=== PATIENT | female | born 1970 | race Caucasian/White ===

== ENCOUNTER 2016-11-17 17:05 | Emergency (ER) | payer OTHER ==
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
[~2016-11-17 17:05] MED LIST: ADVAIR 500-501 EACH INH; ALLERGY RELIEF10 MG PO; BENADRYL25 MG PO; BIOTIN PO; COLACE100 MG PO; COREG12.5 MG PO; CYANOCOBALAMIN PO; DULERA 200 MCG/51 EA INH; EXCEDRIN EXTRA1 TAB PO; FARXIGA PO; FISH OIL CONCE1 EAC1 PO; GREEN TEA1 EACH PO; K-TAB 10MEQ10 MEQ PO; LIDOCAINE 1% MD20 M1 ID; MAGNESIUM PO; PAIN RELIEF650 MG PO; PROVENTIL OR V6.7 GM INH; RELPAX40 MG PO; THERAGRAN-M1 TAB PO; TOPAMAX200 MG PO; TRAMADOL HCL50 MG PO; ZOFRAN2 MG/M1 IV
[2016-11-17 18:31] LABS: BASOPHIL % 0.6 %; EOSINOPHIL % 0.6 %; HEMATOCRIT 37.4 % (33.0-46.0); HEMOGLOBIN 12.5 g/dL (10.0-15.0); IMMATURE GRANULOCYTE % 0.3 %; LYMPHOCYTE # 1.4 K/uL (0.8-4.0); LYMPHOCYTE % 19.3 %; MCH 32.1 pg (27.0-34.0); MCHC 33.4 gm/dL (32.0-36.5); MCV 95.9 fl (83.0-98.0); MONOCYTE # 0.7 K/uL (0.0-1.0); MONOCYTE % 9.2 %; MPV 9.1 fl (9.4-12.4); NEUTROPHIL # (ANC) 5.1 K/uL (1.8-7.8); NRBC % 0 /100WBC (0-0.00); PLATELET COUNT 288 K/uL (150-450); RDW-CV 13.2 % (11.9-14.6); WBC 7.2 K/uL (4.0-11.0)
[2016-11-17 18:39] LABS: INR - (THERAPEUTIC) 1.04 (0.92-1.07); PROTIME 10.9 SECONDS (9.8-11.4); PTT 26 SECONDS (25-32)
[2016-11-17 18:50] LABS: ALBUMIN 3.9 gm/dL (3.5-5.0); ALK PHOS 56 IU/L (33-138); ALT 27 IU/L (12-78); AST 17 IU/L (10-40); BLOOD UREA NITROGEN 26 mg/dL (6-24); CALCIUM 8.7 mg/dL (8.5-10.5); CHLORIDE 108 mMol/L (96-110); CO2 26 mMol/L (22-32); CPK 93 IU/L (21-215); CREATININE 0.9 mg/dL (0.5-1.1); ESTIMATED GFR (MDRD EQUATION) > 60; MAGNESIUM 2.2 mg/dL (1.8-2.6); SODIUM 140 mMol/L (135-145); TOTAL BILIRUBIN 0.7 mg/dL (0.0-1.5); TOTAL PROTEIN 7.5 g/dL (6.0-8.4)
== END 2016-11-17 19:35 | disposition disaster alternative care site (69) ==
LOC: GMED 17:05
PROVIDERS: Emergency Medicine
DX: F41.9 Anxiety disorder, unspecified (principal); F31.9 Bipolar disorder, unspecified; I50.9 Heart failure, unspecified; J45.909 Unspecified asthma, uncomplicated; I44.7 Left bundle-branch block, unspecified; Z79.82 Long term (current) use of aspirin; Z79.899 Other long term (current) drug therapy; Z91.040 Latex allergy status

== ENCOUNTER 2016-12-19 15:52 | Emergency (ER) | payer SELFPAY ==
--- NOTE | ~2016-12-19 | ER ---
PATIENT'S NAME: RACHEAL VAUGHN [facility] AGE: 46 Y [address] ROOM: [place] [address] LOCATION: ED ADMIT DATE: 12/19/2016 ER/Outpatient Report DISCHARGE DATE: 12/19/2016 FAMILY PHYSICIAN: PHYSICIAN, NO ATTENDING PHYSICIAN: Jose Purcell CHIEF COMPLAINT: Dizziness and low blood pressure. HISTORY OF PRESENT ILLNESS: Ms Vaughn notes that she had low blood pressure yesterday but it was better today but she wanted to get things checked out. She states this is associated with significant dizziness. She has no specific time of onset, but it has been going on for a while. She states that she has received multiple medications for blood pressure and is taking at least three antihypertensives. She also has a report of a history of heart failure secondary to rheumatic heart disease as a child. She reports that she follows with Dr. Barrett for that. She notes that she just does not feel good with this, but cannot really explain otherwise. She has near morales positive review of systems. PAST MEDICAL HISTORY: Documented on the record and reviewed by me. SOCIAL HISTORY: Documented on the record and reviewed by me. MEDICATIONS: Documented on the record and reviewed by me. ALLERGIES: DOCUMENTED ON THE RECORD AND REVIEWED BY ME. REVIEW OF SYSTEMS: All systems reviewed and negative except as noted in the HPI. PHYSICAL EXAMINATION: VITAL SIGNS: Blood pressure 116/75, pulse 114, respiratory rate 18, temperature 98.1, SpO2 is 98% on room air. Pain is rated 4/10. GENERAL: Age-appropriate female, upright on exam table. No apparent pain or distress. NEUROLOGIC: Awake and alert. GCS 15. No focal deficits. No asymmetry. No difficulty with rapid alternating movements. No nystagmus. HEENT: Normocephalic, atraumatic. Eyes are PERRL. Oropharynx is clear and moist. PATIENT'S NAME: RACHEAL VAUGHN [facility] AGE: 46 Y [address] ROOM: [place] [address] LOCATION: [facility] ADMIT DATE: 12/19/2016 ER/Outpatient Report DISCHARGE DATE: 12/19/2016 FAMILY PHYSICIAN: PHYSICIAN, NO ATTENDING PHYSICIAN: Jose Purcell NECK: Supple. Trachea is midline. CHEST: Heart is regular rate and rhythm. Borderline tachycardia on exam. LUNGS: Clear to auscultation bilateral. No rhonchi, wheezes, or rales. ABDOMEN: Soft, nontender, and nondistended. No rebound, guarding, or masses. BACK: Normal to inspection palpation. No CVA tenderness or spinal tenderness. EXTREMITIES: Warm and well perfused. Maybe trace edema of the ankles. LABORATORY DATA AND X-RAYS: No imaging was obtained. EKG is notable for what appears to be left bundle which appears stable from prior EKG dated 11/17/2016. No significant changes. CMS: Again electrolyte abnormality of potassium at 3.6, otherwise unremarkable overall. Renal function and LFTs unremarkable. Cardiac biomarkers are not elevated. ProBNP is 89, free T4 is 1.2, TSH is 0.54. Serum cortisol is pending. White count, hemoglobin, and platelets are all within normal limits. IMPRESSION: Dizziness of unclear etiology. EMERGENCY DEPARTMENT COURSE: The patient was seen and evaluated as above. There has been no evidence of hypotension here. The patient is not orthostatic. I personally performed vital signs. The patient remained with blood pressure in the one teens over 80s and had heart rate of 95-100 at sitting and standing and went up to 110 at standing. The patient has no evidence of systemic disease at this time. Based on the episodic changes in blood pressure, I did consider adrenal insufficiency; however, her presentation is not completely fit with that. Random serum cortisol is pending. Dr. Klein will follow it up. Hand off given at 1800 hours. Please see his dictation for complete details. MD LOUIS HENRY/татьянаl /[id number] d: 12/20/161611 t: 01/02/17 0958, OUTPATIENT REPORT
--- NOTE | ~2016-12-19 | ER ---
PATIENT'S NAME: RACHEAL DONAHUE [facility] AGE: 46 Y [address] ROOM: [place] [address] LOCATION: [facility] ADMIT DATE: 12/19/2016 ER/Outpatient Report DISCHARGE DATE: 12/19/2016 FAMILY PHYSICIAN: Kalen Barrett MD ATTENDING PHYSICIAN: Jose Purcell ADDENDUM: This is an addendum to Dr. Purcell's dictation. Please see his dictation for chief complaint, history of present illness, past medical history, past surgical history, social history, allergies, medications, review of systems, and physical exam. I was asked to follow up on laboratory analysis. I did see the patient and discussed the history with the patient. She reports that these symptoms have been going on for about a month. She reports some low blood pressure at home. There have been no reports of low blood pressure while here in the Emergency Department. She does complain of some nausea for approximately two days. She reports some dizziness as well. Her laboratory analysis and the EKG are reviewed by myself. Cortisol was 9.7. CMP was unremarkable. LFTs are normal. CK-MB is normal. Troponin is normal. Free T4 is normal. TSH is normal. ProBNP is normal. EKG shows sinus tachycardia with a rate of 100, normal axis, and normal interval. No ST elevation or ST depression. Left bundle-branch block. No significant change from 11/17/2016. CBC is normal. I did discuss all these results with the patient. I have discussed following up with the primary care doctor in the next two days for re-evaluation. The patient is on multiple different blood pressure medications including lisinopril and metoprolol. She just recently started the Ativan as well. I have discussed that she may need decreasing doses of this blood pressure medication. I have written a prescription for meclizine for home for her vertiginous symptoms. I have discussed return to care instructions including worsening symptoms or any other concerns, to return to the Emergency Department as soon as possible. The patient is agreeable without further questions. DISPOSITION: The patient was discharged home in good condition. DO KARTHIK BURTON/harry WILKINSON: 12/19/2016 19:22:11 PATIENT'S NAME: RACHEAL DNOAHUE [facility] AGE: 46 Y [address] ROOM: [place], [place] [address] LOCATION: [facility] ADMIT DATE: 12/19/2016 ER/Outpatient Report DISCHARGE DATE: 12/19/2016 FAMILY PHYSICIAN: Kalen Barrett MD ATTENDING PHYSICIAN: Jose Purcell /[id number] d: 12/20/16 0059 t: 12/20/161911, OUTPATIENT REPORT
[2016-12-19 16:31] LABS: BASOPHIL % 0.6 %; EOSINOPHIL % 0.1 %; HEMATOCRIT 37.2 % (33.0-46.0); HEMOGLOBIN 12.7 g/dL (10.0-15.0); IMMATURE GRANULOCYTE % 0.1 %; LYMPHOCYTE # 1.3 K/uL (0.8-4.0); LYMPHOCYTE % 18.8 %; MCH 32.1 pg (27.0-34.0); MCHC 34.1 gm/dL (32.0-36.5); MCV 93.9 fl (83.0-98.0); MONOCYTE # 0.6 K/uL (0.0-1.0); MONOCYTE % 8.4 %; MPV 9.4 fl (9.4-12.4); NEUTROPHIL # (ANC) 4.9 K/uL (1.8-7.8); NRBC % 0 /100WBC (0-0.00); PLATELET COUNT 285 K/uL (150-450); RBC 3.96 M/uL (3.50-5.50); RDW-CV 11.9 % (11.9-14.6); WBC 6.8 K/uL (4.0-11.0)
[2016-12-19 16:52] LABS: ALBUMIN 4.2 gm/dL (3.5-5.0); ALK PHOS 57 IU/L (33-138); ALT 26 IU/L (12-78); ANION GAP 13.6 (10.0-19.0); AST 24 IU/L (10-40); BLOOD UREA NITROGEN 25 mg/dL (6-24); CALCIUM 9.1 mg/dL (8.5-10.5); CHLORIDE 109 mMol/L (96-110); CO2 22 mMol/L (22-32); POTASSIUM 3.6 mMol/L (3.7-5.1); SODIUM 141 mMol/L (135-145); TOTAL BILIRUBIN 0.8 mg/dL (0.0-1.5); TOTAL PROTEIN 7.8 g/dL (6.0-8.4)
== END 2016-12-19 18:24 | disposition disaster alternative care site (69) ==
LOC: GMED 15:52
PROVIDERS: Emergency Medicine
DX: R42 Dizziness and giddiness (principal); I11.0 Hypertensive heart disease with heart failure; I50.9 Heart failure, unspecified; I34.1 Nonrheumatic mitral (valve) prolapse; R00.0 Tachycardia, unspecified; Z88.8 Allergy status to other drugs, medicaments and biological substances; Z91.040 Latex allergy status; Z98.51 Tubal ligation status; Z98.890 Other specified postprocedural states